=== PATIENT | female | born 1965 | race Caucasian/White ===

== ENCOUNTER → 2018-12-22 08:16 | Outpatient (POV) | payer BC, SELFPAY | PROVIDERS: Visit Provider Dermatology | DX: Z00.00 Encounter for general adult medical examination without abnormal findings (principal) ==

== ENCOUNTER → 2019-05-13 09:01 | Outpatient (CLI) | payer BC, SELFPAY ==
--- NOTE | 2019-05-13 09:10 | XR_ITS ---
XR wrist RT min 3V HISTORY pain following injury ITS.REASON: RT WRIST/HAND PAIN ORDERING PHYSICIAN: Shannon Melgar APRN PATIENT AGE: 53 years Comparison: None FINDINGS: No fracture or dislocation. No lytic or blastic change. There is normal mineralization.. The joint spaces are well-preserved. No significant degenerative/arthritic changes. No erosive changes evident.. There is mild bowing of the pronator quadratus fat pad anteriorly. This is of questionable clinical significance. If pain persists, consider follow-up exam in 7-10 days IMPRESSION: No acute fracture identified. Mild bowing of the pronator quadratus fat pad which may be seen with wrist trauma. Consider follow-up exam in 7-10 days if pain persists
--- NOTE | 2019-05-13 09:10 | XR_ITS ---
XR hand RT min 3V HISTORY: Post traumatic pain ITS.REASON: RT WRIST/HAND PAIN ORDERING PHYSICIAN: Shannon Melgar APRN PATIENT AGE: 53 years COMPARISON: None FINDINGS: No fracture or dislocation. No lytic or blastic change. There is normal mineralization.. The joint spaces are well-preserved. No significant degenerative/arthritic changes. No erosive changes evident.. IMPRESSION: Negative, no acute finding
== END ==
PROVIDERS: PCP Internal Medicine Adolescent Medicine; Visit Provider Nurse Practitioner Family
DX: M79.601 Pain in right arm (principal)
CPT/HCPCS: 73110; 73130

== ENCOUNTER → 2020-11-15 09:43 | Outpatient (CLI) | payer BC, SELFPAY ==
[2020-11-15 11:04] LABS: Adenovirus,PCR Not Detected (NotDetected); Bordetella Pertussis Not Detected (NotDetected); Chlamydophila Pneumoniae, PCR Not Detected (NotDetected); Coronavirus 19, PCR Not Detected (NotDetected); Coronavirus 229E Not Detected (NotDetected); Coronavirus NL63 Not Detected (NotDetected); Coronavirus OC43 Not Detected (NotDetected); Coronovirus HKU1,PCR Not Detected (NotDetected); Human Metapneumovirus Not Detected (NotDetected); Influenza A, PCR Not Detected (NotDetected); Influenza AH1, 2009 Not Detected (NotDetected); Influenza AH1, PCR Not Detected (NotDetected); Influenza AH3,PCR Not Detected (NotDetected); Influenza B, PCR Not Detected (NotDetected); Mycoplasma Pneumoniae, PCR Not Detected (NotDetected); Parainfluenza 1, PCR Not Detected (NotDetected); Parainfluenza 2, PCR Not Detected (NotDetected); Parainfluenza 3, PCR Not Detected (NotDetected); Parainfluenza 4, PCR Not Detected (NotDetected); Respiratory Syncytial Virus Not Detected (NotDetected); Rhinovirus/Enterovirus Not Detected (NotDetected)
== END ==
PROVIDERS: PCP Internal Medicine Adolescent Medicine; Visit Provider Internal Medicine Adolescent Medicine
DX: Z20.822 Contact with and (suspected) exposure to COVID-19 (principal)
CPT/HCPCS: 87581; 87633; 87798

== ENCOUNTER → 2021-06-14 10:05 | Outpatient (CLI) | payer BC, SELFPAY ==
--- NOTE | 2021-06-14 10:11 | XR_ITS ---
PROCEDURE: XR CHEST 2V CLINICAL HISTORY: NODULE OF CHEST WALL COMPARISON: No exams were available for comparison FINDINGS: The cardiomediastinal silhouette and pulmonary vascularity are within normal limits. There is a 2 x 0.8 cm nodule in the left lung zone laterally which may be partially calcified. The remaining lungs are clear. No acute bony abnormalities. IMPRESSION: Left upper lobe nodule may be partially calcified. CT may confirm. Otherwise negative. Dictated by: Brendan Feldman MD 06/14/2021 15:46 Brendan Feldman MD in [place] 06/14/2021 15:46
== END ==
PROVIDERS: PCP Internal Medicine Adolescent Medicine; Visit Provider Internal Medicine Adolescent Medicine
DX: R22.2 Localized swelling, mass and lump, trunk (principal)
CPT/HCPCS: 71046

== ENCOUNTER → 2022-03-26 13:52 | Outpatient (POV) | payer BC, SELFPAY | PROVIDERS: Visit Provider Dermatology | DX: Z00.00 Encounter for general adult medical examination without abnormal findings (principal) ==

== ENCOUNTER → 2022-05-07 08:16 | Outpatient (POV) | payer BC, SELFPAY | PROVIDERS: Visit Provider Dermatology | DX: Z00.00 Encounter for general adult medical examination without abnormal findings (principal) ==

== ENCOUNTER → 2022-06-10 09:54 | Outpatient (CLI) | payer BC, SELFPAY | PROVIDERS: PCP Nurse Practitioner Family; Visit Provider Nurse Practitioner Family | DX: G47.33 Obstructive sleep apnea (adult) (pediatric) (principal); R06.83 Snoring | CPT/HCPCS: G0399 ==

== ENCOUNTER → 2023-07-29 14:52 | Outpatient (POV) | payer BC, SELFPAY ==
--- OUTSIDE RECORDS SUMMARY | 2023-07-29 14:54 | XMS_ITS | Clinical Summary ---
Author Name Unknown Address [address] [place] [address] Phone Organization [facility] , [facility] Address [address] [place] [address] Phone Care Team Providers Care Credit Charge Authorizer Name Role Phone KIM POZO MD Primary Care Provider [phone] Julio CHERRY, Gideon Concepcion Unavailable [phone] Reason for Visit and Chief Complaint NEW PROBLEM/EST PT Problems Includes: Problems addressed during this encounter and other active Problems Current Visit Onset Date Resolved Date Provider Conditio n Status Joint Pain in the Left Knee 05/20/2023 Celio Duval MD Active Past Visits Onset Date Resolved Date Provider Condition Status Joint Pain in the Left Hip 03/04/2023 Ceilo pride MD Active Plan of Treatment Patient was seen by myself and Dr. Duval. Jitendra Osborn PA-C Patient will follow- up in 2 months for the right knee with repeat x-rays for the right total knee replacement we will switch from Mobic to diclofenac for her and follow-up with rheumatology sometime in June possibly she could have some psoriatic arthritis - Last Documented On 05/21/2023 2:34PM ; [facility], [facility] Pending Tests Order Diagnosis Results Due Ordering P [facility] - MRI MRI Lumbar Spine Other intervert ebral disc degeneration, lumbar region 03/18/23 Celio Duval MD Future Appointments Date Time Location Provi arian Follow Up 08/05/2023 8:30AM [facility] CANDI Duval MD Assessments Includes: Assessments from this encounter Findings Left knee pain/chondromalacia - Last Documented On 05/21/2023 2:34PM ; [facility], [facility] bilateral foot pain - Last Documented On 05/21/2023 2:34PM ; [facility], [facility] Medical Equipment - Implanted Devices Includes: Current Devices No Medical Equipment Recorded Medications Includes: Medications discussed during this encounter and other current Medications New / Renewed during this visit Celio Duval MD on 05/20/2023 Diclofenac Sodium 75 MG Oral Tablet, enteric coated Provider: Celio Duval MD 30 day supply: 60 tablet, 1 refills Diagnosis: twice a day take 1 tablet twice daily Pharmacy: [phone], [id number] - Current Medications (continue as prescribed) Meloxicam 15 MG Oral Tablet 05/07/2023 - 08/05/2023 Pr ovider: Celio Duval MD Diagnosis: 1 every bedtime Advil 200 MG Oral Capsule 12/31/2022 Provider: Diagnosis: traZODone HCl 50 MG Oral Tablet 12/31/2022 Provider: Diagnosis: Gabapentin 300 MG Oral Capsule 12/23/2022 Provider: Diagnosis: Losartan Potassium 50 MG Oral Tablet 08/17/2022 Prov ider: Diagnosis: clonazePAM 1 MG Oral Tablet 06/10/2022 Provider: Diagnosis: [place] Thyroid 60 MG Oral Tablet 03/22/2021 Provider : KELLIE LACEY MD Diagnosis: Past Medications on file Meloxicam 15 MG Oral Tablet 04/01/2023 - 05/01/2023 Pr ovider: Celio Duval MD Diagnosis: 1 every bedtime Neurontin 300 MG Oral Capsule 02/26/2023 - 03/28/2023 Provider: Celio Duval MD Diagnosis: 1 every bedtime traMADol HCl 50 MG Oral Tablet 02/26/2023 - 03/28/2023 Provider: Celio Duval MD Diagnosis: 1 every bedtime Methocarbamol 750 MG Oral Tablet 01/31/2023 - 03/02/20 Provider: Celio Duval MD Diagnosis: 1 every bedtime Meloxicam 15 MG Oral Tablet 01/17/2023 - 02/16/2023 Pr ovider: Celio Duval MD Diagnosis: once a day traMADol HCl 50 MG Oral Tablet 01/17/2023 - 02/01/2023 Provider: Celio Duval MD Diagnosis: 1-2 p o q 6-8h for breakthrough post op pain oxyCODONE HCl 5 MG Oral Tablet 01/17/2023 - 01/22/2023 Provider: Celio Duval MD Diagnosis: 1-2 p o q 6-8h for post op pain Ondansetron HCl 4 MG Oral Tablet 01/17/2023 - 02/01/20 Provider: Celio Duval MD Diagnosis: 1-2 p o q 6-8h as needed for nausea Cefadroxil 500 MG Oral Capsule 01/17/2023 - 01/20/2023 Provider: Celio Duval MD Diagnosis: twice a day Colace 100 MG Oral Capsule 01/17/2023 - 02/16/2023 Pro vider: Celio Duval MD Diagnosis: 1-2 tabs daily as needed, AFTER SURGERY Aspirin Adult Low Strength 8 1 MG Oral Tablet Delayed Release 01/17/2023 - 03/03/2023 Provider: Celio Duval MD Diagnosis: twice a day Acetaminophen 500 MG Oral Tablet 01/17/2023 - 02/17/20 Provider: Celio Duval MD Diagnosis: 2 three times a day , AFTER SURGERY traMADol HCl 50 MG Oral Tablet 12/13/2022 - 01/12/2023 Provider: Celio Duval MD Diagnosis: 1 tab every 6 hrs prn pain Neurontin 300 MG Oral Capsule 12/12/2022 - 01/11/2023 Provider: Celio Duval MD Diagnosis: 1 every bedtime oxyCODONE HCl 5 MG Oral Tablet 11/27/2022 - 12/07/2022 Provider: Celio Duval MD Diagnosis: 1 every bedtime Meloxicam 15 MG Oral Tablet 11/22/2022 - 12/02/2022 Pr ovider: Celio Duval MD Diagnosis: 1 every bedtime traMADol HCl 50 MG Oral Tablet 09/26/2022 - 10/06/2022 Provider: Celio Duval MD Diagnosis: 1-2 po q 4-6h PRN for breakthrough post op pain Ondansetron HCl 4 MG Oral Tablet 09/26/2022 - 10/10/20 Provider: Celio Duval MD Diagnosis: 1-2 p o q 6-8h as needed for nausea oxyCODONE HCl 5 MG Oral Tablet 09/26/2022 - 09/30/2022 Provider: Celio Duval MD Diagnosis: 1 po q 4h 1 tablet by mouth every [address] op pain Aspirin Adult Low Strength 8 1 MG Oral Tablet Delayed Release 09/26/2022 - 11/10/2022 Provider: Celio Duval MD Diagnosis: twice a day Methocarbamol 750 MG Oral Tablet 04/30/2022 - 06/29/20 22 Provider: Jitendra Osborn PA-C Diagnosis: Take 1 tablet every 8 hrs prn pain Mobic 15 MG Oral Tablet 09/13/2021 - 11/12/2021 Provid er: Gideon Kim MD Diagnosis: once a day CeleBREX 200 MG Oral Capsule 08/09/2021 - 09/08/2021 P rovider: Gideon Kim MD Diagnosis: once a day HYDROcodone-Acetaminophen 5- 325 MG Oral Tablet 06/11/2021 - 07/11/2021 Provider: Gideon Kim MD Diagnosis: 1 po q 4h prn for pain Ibuprofen 800 MG Oral Tablet 06/11/2021 - 10/09/2021 P rovider: Diagnosis: Take 1 tablet every 8 hrs prn pain Medications Administered Includes: Administered Medications from this encounter No Administered Medications Recorded Results Includes: Results discussed during this encounter No Results Recorded For Specified Dates History of Present Illness Includes: History of Present Illness from this encounter EDEN FUNK is a 57 year old female. - Symptoms catching, popping, and grinding. - Allergy list reviewed - Problem list reviewed - Medication list reviewed - Sharp pain Symptoms - Stabbing - Pain is occasional (25% of the time) - Pain is throbbing - Pain is dull, aching - No previous treatment. Patient is here today with complaint of bilateral foot pain left knee pain she schedule see the awning assembler for both feet sometime the end of June. She says that both feet bother her She says feels like at times she is getting an ice pick treatment through her right big toes on both sides but all her toes hurt when she is trying to walk. Her knee has been bothering her on the left side she had a history of a previous right knee replacement. She says the diclofenac does not seem to help much anymore. She has gotten relief before with some diclofenac. She says her knee will grind difficulties going up and down steps Follow-up right total knee patient is doing well with her right total knee pain in the left knee more than she would like but is not interested in surgery on the left knee at this time Social History Description Last Updated Yes, current smoker. 03/18/2023 Procedures and Surgical History Includes: Procedures from this encounter Procedures Code Diagnosis Performing Provider Service Location Service Date X-RAY EXAM OF FOOT 3 VIEWS (RIGHT) 65634 Pain in right ankle and joints of right foot Celio Duval MD [facility] 05/20/2023 Medical History Includes: Medical History addressed during this encounter Description Last Updated History of Gallbladder 05/30/2020 Family History Includes: Family History addressed during this encounter Description Last Updated No significant family history 06/28/2021 Review of Systems Includes: Review of Systems from this encounter No Review of Systems Recorded Mental Status Includes: Mental Status from this encounter No Mental Status Recorded Functional Status Includes: Functional Status from this encounter No Functional Status Recorded Physical Exam Includes: Physical Exam from this encounter Allergies Includes: Active Allergies Substance Type Reaction Onset Date Resolved Date Statu s Penicillins Allergy 05/30/2020 Active Encounters Encounter Provider Location Date Check-In Time Check-Out Time Diagnosis NEW PROBLEM/EST PT Celio Duval MD [facility] 05/20/20 23 10:23AM 11:32AM Insurance Includes: Active Insurance Policies Plan Name Member ID Group # Subscriber Relationship Effect darius Dates 1 - [facility] [id number] BLESSING, ANDRÉS 10/13/2020 - Unknown Clinical Notes Includes: Clinical Notes from this encounter * Progress note Date Encounter Last Documented by 05/20/2023 NEW PROBLEM/EST PT Last document ed on 05/21/2023; 2:34 PM, Celio Duval MD; [facility] Active Problems & Conditions - Joint Pain in the Left Hip - Joint Pain in the Left Knee - Joint Pain in the Right Knee - Joint Pain, Localized in the Left Shoulder - Lower Back Pain - Neck Pain Subjective Have you ever tried physical therapy for this and how long and where? What injections have you tried for this pain? Last injection date? Have you had prior surgery on this area? What medications have you tried for this pain? Have you tried to lose weight? History of Present Illness Melissa FUNK is a 57 year old female. - Symptoms catching, popping, and grinding. - Allergy list reviewed - Problem list reviewed - Medication list reviewed - Sharp pain Symptoms - Stabbing - Pain is occasional (25% of the time) - Pain is throbbing - Pain is dull, aching - No previous treatment. Patient is here today with complaint of bilateral foot pain left knee pain she schedule see the awning assembler for both feet sometime the end of June. She says that both feet bother her She says feels like at times she is getting an ice pick treatment through her right big toes on both sides but all her toes hurt when she is trying to walk. Her knee has been bothering her on the left side she had a history of a previous right knee replacement. She says the diclofenac does not seem to help much anymore. She has gotten relief before with some diclofenac. She says her knee will grind difficulties going up and down steps Follow-up right total knee patient is doing well with her right total knee pain in the left knee more than she would like but is not interested in surgery on the left knee at this time Current Medication - Advil 200 MG Oral Capsule Capsule, conventional take as directed 0 days, 0 refills - [place] Thyroid 60 MG Oral Tablet 90 days, 0 refills - clonazePAM 1 MG Oral Tablet 30 days, 0 refills - Gabapentin 300 MG Oral Capsule Capsule, conventional take as directed 0 days, 0 refills - Losartan Potassium 50 MG Oral Tablet take as directed 30 days, 0 refills - Meloxicam 15 MG Oral Tablet 1 every bedtime, 30 days, 2 refills - traZODone HCl 50 MG Oral Tablet 0 days, 0 refills Past Medical/Surgical History Reported: Immunization History: No recent immunization for flu and not for pneumococcal pneumonia. Diagnoses: Thyroid Disease Procedural: - History of Gallbladder - Previous Fractures Surgical: - Hysterectomy Social History Yes, current smoker. Yes, current smoker. Current diet: No recent change in diet. No recent change in diet. Caffeine use: Caffeine use. Tobacco use: Tobacco non-user and smoker. Is a smoker. Smoking status: Current everyday smoker. Alcohol: Alcohol use. Drug Use: Not using drugs. Habits: Exercising regularly. Allergies - Penicillins Family History No significant family history Osteoporosis Physical Findings Both feet have no swelling no significant deformity left knee has no significant swelling range of motion 0-125 stable crepitus through the range of motion stable ligamentous exam Tests 2 views left knee shows no significant arthritis in the left knee bilateral foot x-ray showed no significant erosions or fractures May 20, 2023 Assessment Left knee pain/chondromalacia bilateral foot pain Plan StartCited - Other Diclofenac Sodium 75 MG tablet twice a day take 1 tablet twice daily, 30 days, 1 refills EndCited Patient was seen by myself and Dr. Duval. Jitendra Osborn PA-C Patient will follow- up in 2 months for the right knee with repeat x-rays for the right total knee replacement we will switch from Mobic to diclofenac for her and follow-up with rheumatology sometime in June possibly she could have some psoriatic arthritis Notes This dictation was done with voice recognition software and may contain errors and omissions. Care Team - KIM POZO MD - TRANSPORTATION [employer]
--- OUTSIDE RECORDS SUMMARY | 2023-07-29 14:54 | XMS_ITS ---
Author Name Unknown Address [address] [place] [address] Phone Organization [facility] Address [address] [place] [address] Phone Care Team Providers Care Assistant Manager Of Operations Name Role Phone KIM POZO MD Primary Care Provider [phone] Julio CHERRY, Gideon Concepcion Unavailable [phone] Reason for Referral Date Encounter Description Provider Reason for Referral 06/12/22 [facility] Jitendra pinedo PA-C Referral To Physician 05/29/22 [facility] Jitendra pinedo PA-C Referral To Physician 05/22/22 [facility] Jitendra pinedo PA-C Referral To Physician 04/30/22 NEW PROBLEM/EST PT Jitendra Osborn PA-C Ref erral To Physician - for elevated bp; Referral To Physician 04/24/22 Follow Up Jitendra Cadet PA-C Refer ral To Physician - for elevated bp 04/10/22 Follow Up Jitendra Cadet PA-C Refer ral To Physician - for elevated bp 01/29/22 Follow Up Celio Duval MD Referral To Physician - for elevated bp 09/13/21 Follow Up Gideon Kim MD Referral To Physician - for elevated bp 08/09/21 Follow Up Gideon Kim MD Referral To Physician - for elevated bp 06/28/21 Follow Up Gideon Kim MD Referral To Physician - for elevated blood pressure 06/11/21 NEW PROBLEM/EST PT Gideon Kim MD Refer ral To Physician - see pcp for bp 07/04/20 Follow Up Celio Duval MD Referral To Physician - see pcp for bp Problems Includes: Active, inactive, and resolved Problems All Visits Onset Date Resolved Date Provider Condition S tatus Joint Pain in the Left Knee 05/20/2023 Celio Duval MD Active Plan of Treatment Pending Tests Order Diagnosis Results Due Ordering P rovider Radiology - CT Scan Knee 12/11/22 Satinder Cadet PA-C Referrals To Diagnosis Consult with Bead Builder Low back pain, unspecified Future Appointments Date Time Location Provi arian Follow Up 08/05/2023 8:30AM [facility] [place] Duval MD Instructions to patient Intervention and counseling on cessation of tobacco use Last Documented On 3 10:51AM ; [facility] Intervention and counseling on cessation of tobacco use Last Documented On 3 1:31PM ; [facility] Intervention and counseling on cessation of tobacco use Last Documented On 3 8:45AM ; [facility] Lose weight Last Documented On 3 8:45AM ; [facility] Intervention and counseling on cessation of tobacco use Last Documented On 3 9:41AM ; [facility] Lose weight Last Documented On 3 9:41AM ; [facility] Intervention and counseling on cessation of tobacco use Last Documented On 3 2:47PM ; [facility] Lose weight Last Documented On 3 2:47PM ; [facility] Intervention and counseling on cessation of tobacco use Last Documented On 3 2:07PM ; [facility] Lose weight Last Documented On 3 1:53PM ; [facility] Lose weight Last Documented On 2 10:52AM ; [facility] Intervention and counseling on cessation of tobacco use Last Documented On 2 1:50PM ; [facility] Lose weight Last Documented On 2 1:46PM ; [facility] Lose weight Last Documented On 2 8:31AM ; [facility] Intervention and counseling on cessation of tobacco use Last Documented On 2 9:14AM ; [facility] Lose weight Last Documented On 2 9:14AM ; [facility] Intervention and counseling on cessation of tobacco use Last Documented On 2 8:42AM ; [facility] Lose weight Last Documented On 2 8:42AM ; [facility] Intervention and counseling on cessation of tobacco use Last Documented On 2 8:37AM ; [facility] Lose weight Last Documented On 2 8:37AM ; [facility] Intervention and counseling on cessation of tobacco use Last Documented On 2 2:30PM ; [facility] Lose weight Last Documented On 2 2:26PM ; [facility] Intervention and counseling on cessation of tobacco use Last Documented On 2 10:00AM ; [facility] Lose weight Last Documented On 2 10:00AM ; [facility] Intervention and counseling on cessation of tobacco use Last Documented On 2 10:20AM ; [facility] Lose weight Last Documented On 2 10:05AM ; [facility] Lose weight Last Documented On 2 10:56AM ; [facility] Lose weight Last Documented On 1 8:28AM ; [facility] Lose weight Last Documented On 1 8:17AM ; [facility] Lose weight Last Documented On 1 8:17AM ; [facility] Intervention and counseling on cessation of tobacco use Last Documented On 1 9:56AM ; [facility] Instructions for patient see pcp for bp Last Documented On 1 10:10AM ; [facility] Intervention and counseling on cessation of tobacco use Last Documented On 1 10:10AM ; [facility] Instructions for patient see pcp for bp Last Documented On 0 8:50AM ; [facility] Intervention and counseling on cessation of tobacco use Last Documented On 0 8:50AM ; [facility] Instructions for patient see pcp for bp Last Documented On 0 10:55AM ; [facility] Intervention and counseling on cessation of tobacco use Last Documented On 0 10:55AM ; [facility] Instructions for patient see pcp for bp Last Documented On 0 10:23AM ; [facility] Intervention and counseling on cessation of tobacco use Last Documented On 0 10:02AM ; [facility] Education and Decision Aids were provided during visit for: Health seminar on smoking ce ssation Last Documented On 3 8:45AM ; [facility] Health seminar on smoking ce ssation Last Documented On 3 9:41AM ; [facility] Health seminar on smoking ce ssation Last Documented On 3 2:47PM ; [facility] Health seminar on smoking ce ssation Last Documented On 3 1:53PM ; [facility] Health seminar on smoking ce ssation Last Documented On 2 10:52AM ; [facility] Health seminar on smoking ce ssation Last Documented On 2 1:46PM ; [facility] Health seminar on smoking ce ssation Last Documented On 2 8:31AM ; [facility] Health seminar on smoking ce ssation Last Documented On 2 9:14AM ; [facility] Health seminar on smoking ce ssation Last Documented On 2 8:42AM ; [facility] Health seminar on smoking ce ssation Last Documented On 2 8:37AM ; [facility] Health seminar on smoking ce ssation Last Documented On 2 2:26PM ; [facility] Health seminar on smoking ce ssation Last Documented On 2 10:00AM ; [facility] Health seminar on smoking ce ssation Last Documented On 2 10:05AM ; [facility] Health seminar on smoking ce ssation Last Documented On 2 10:56AM ; [facility] Health seminar on smoking ce ssation Last Documented On 1 8:28AM ; [facility] Health seminar on smoking ce ssation Last Documented On 1 8:17AM ; [facility] Health seminar on smoking ce ssation Last Documented On 1 8:17AM ; [facility] Health seminar on smoking ce ssation Last Documented On 1 9:56AM ; [facility] Health seminar on smoking ce ssation Last Documented On 1 10:10AM ; [facility] Health seminar on smoking ce ssation Last Documented On 0 8:50AM ; [facility] Health seminar on smoking ce ssation Last Documented On 0 10:55AM ; [facility] Health seminar on smoking ce ssation Last Documented On 0 10:23AM ; [facility] Assessments Includes: Assessments for all patient encounters No Assessments Recorded Instructions Includes: Instructions for all patient encounters Instructions to patient Intervention and counseling on cessation of tobacco use Last Documented On 3 10:51AM ; [facility] Intervention and counseling on cessation of tobacco use Last Documented On 3 1:31PM ; [facility] Intervention and counseling on cessation of tobacco use Last Documented On 3 8:45AM ; [facility] Lose weight Last Documented On 3 8:45AM ; [facility] Intervention and counseling on cessation of tobacco use Last Documented On 3 9:41AM ; [facility] Lose weight Last Documented On 3 9:41AM ; [facility] Intervention and counseling on cessation of tobacco use Last Documented On 3 2:47PM ; [facility] Lose weight Last Documented On 3 2:47PM ; [facility] Intervention and counseling on cessation of tobacco use Last Documented On 3 2:07PM ; [facility] Lose weight Last Documented On 3 1:53PM ; [facility] Lose weight Last Documented On 2 10:52AM ; [facility] Intervention and counseling on cessation of tobacco use Last Documented On 2 1:50PM ; [facility] Lose weight Last Documented On 2 1:46PM ; [facility] Lose weight Last Documented On 2 8:31AM ; [facility] Intervention and counseling on cessation of tobacco use Last Documented On 2 9:14AM ; [facility] Lose weight Last Documented On 2 9:14AM ; [facility] Intervention and counseling on cessation of tobacco use Last Documented On 2 8:42AM ; [facility] Lose weight Last Documented On 2 8:42AM ; [facility] Intervention and counseling on cessation of tobacco use Last Documented On 2 8:37AM ; [facility] Lose weight Last Documented On 2 8:37AM ; [facility] Intervention and counseling on cessation of tobacco use Last Documented On 2 2:30PM ; [facility] Lose weight Last Documented On 2 2:26PM ; [facility] Intervention and counseling on cessation of tobacco use Last Documented On 2 10:00AM ; [facility] Lose weight Last Documented On 2 10:00AM ; [facility] Intervention and counseling on cessation of tobacco use Last Documented On 2 10:20AM ; [facility] Lose weight Last Documented On 2 10:05AM ; [facility] Lose weight Last Documented On 2 10:56AM ; [facility] Lose weight Last Documented On 1 8:28AM ; [facility] Lose weight Last Documented On 1 8:17AM ; [facility] Lose weight Last Documented On 1 8:17AM ; [facility] Intervention and counseling on cessation of tobacco use Last Documented On 1 9:56AM ; [facility] Instructions for patient see pcp for bp Last Documented On 1 10:10AM ; [facility] Intervention and counseling on cessation of tobacco use Last Documented On 1 10:10AM ; [facility] Instructions for patient see pcp for bp Last Documented On 0 8:50AM ; [facility] Intervention and counseling on cessation of tobacco use Last Documented On 0 8:50AM ; [facility] Instructions for patient see pcp for bp Last Documented On 0 10:55AM ; [facility] Intervention and counseling on cessation of tobacco use Last Documented On 0 10:55AM ; [facility] Instructions for patient see pcp for bp Last Documented On 0 10:23AM ; [facility] Intervention and counseling on cessation of tobacco use Last Documented On 0 10:02AM ; [facility] Education and Decision Aids were provided during visit for: Health seminar on smoking ce ssation Last Documented On 3 8:45AM ; [facility] Health seminar on smoking ce ssation Last Documented On 3 9:41AM ; [facility] Health seminar on smoking ce ssation Last Documented On 3 2:47PM ; [facility] Health seminar on smoking ce ssation Last Documented On 3 1:53PM ; [facility] Health seminar on smoking ce ssation Last Documented On 2 10:52AM ; [facility] Health seminar on smoking ce ssation Last Documented On 2 1:46PM ; [facility] Health seminar on smoking ce ssation Last Documented On 2 8:31AM ; [facility] Health seminar on smoking ce ssation Last Documented On 2 9:14AM ; [facility] Health seminar on smoking ce ssation Last Documented On 2 8:42AM ; [facility] Health seminar on smoking ce ssation Last Documented On 2 8:37AM ; [facility] Health seminar on smoking ce ssation Last Documented On 2 2:26PM ; [facility] Health seminar on smoking ce ssation Last Documented On 2 10:00AM ; [facility] Health seminar on smoking ce ssation Last Documented On 2 10:05AM ; [facility] Health seminar on smoking ce ssation Last Documented On 2 10:56AM ; [facility] Health seminar on smoking ce ssation Last Documented On 1 8:28AM ; [facility] Health seminar on smoking ce ssation Last Documented On 1 8:17AM ; [facility] Health seminar on smoking ce ssation Last Documented On 1 8:17AM ; [facility] Health seminar on smoking ce ssation Last Documented On 1 9:56AM ; [facility] Health seminar on smoking ce ssation Last Documented On 1 10:10AM ; [facility] Health seminar on smoking ce ssation Last Documented On 0 8:50AM ; [facility] Health seminar on smoking ce ssation Last Documented On 0 10:55AM ; [facility] Health seminar on smoking ce ssation Last Documented On 0 10:23AM ; [facility] Medical Equipment - Implanted Devices Includes: Current and historical Devices No Medical Equipment Recorded Medications Includes: Current and historical Medications Current Medications (continue as prescribed) Meloxicam 15 [...] 1 MG Oral Tablet 06/10/2022 Provider: Diagnosis: [place] Thyroid 60 MG Oral Tablet 03/22/2021 Provider : KELLIE LACEY MD Diagnosis: Past Medications on file Diclofenac Sodium 75 MG Oral Tablet, enteric coated 05/20/2023 - 07/19/2023 Provider: Celio Duval MD Diagnosis: twice a day take 1 tablet twice daily Meloxicam 15 MG Oral Tablet 04/01/2023 - [...] three times a day , AFTER SURGERY traZODone HCl 50 MG Oral Tablet 12/31/2022 - Provider: Diagnosis: traMADol HCl 50 MG Oral Tablet 12/13/2022 [...] Celio Duval MD Diagnosis: twice a day amLODIPine Besylate 5 MG Oral Tablet 06/10/2022 - 04/2022 Provider: Diagnosis: Methocarbamol 750 MG Oral Tablet 04/30/2022 - 06/29/20 Provider: Jitendra Osborn PA-C Diagnosis: Take 1 [...] 1 po q 4h prn for pain HYDROcodone-Acetaminophen 7.5-300 MG Oral Tablet 06/11/2021 - 06/28/2021 Provider: Diagnosis: Ibuprofen 800 MG Oral Tablet 06/11/2021 - 10/09/2021 P rovider: Diagnosis: Take 1 tablet every 8 hrs prn pain clonazePAM 1 MG Oral Tablet 05/07/2021 - 06/12/2022 Pr ovider: KIM POZO MD Diagnosis: KlonoPIN 0.5 MG Oral Tablet 05/30/2020 - 06/11/2021 Pr ovider: Diagnosis: Medications Administered Includes: Administered Medications in patient's chart No Administered Medications Recorded Vital Signs Includes: Vital Signs from 07/29/2022 through 07/29/2023 Vital Name 04/01/2023 11:04A 03/04/2023 08:52A 12/31/2022 10:17A 12/12/2022 03:31P 11/27/2022 02:06P Height (in) 70 70 70 70 70 Weight (lb) 245 245 245.6 240 240 Body Mass Index 35.2 35.2 35.2 34.4 34.4 Body Surface Area 2.3 2.3 2.3 2.3 2.3 Blood Pressure Sitting (mmHg) 102/74 Pulse Rate-Sitting (bpm) 89 Oxygen Saturation (%) .97 Note: mg mg baf ba ba Last Documented On: 04/01/2023 11:04AM ; [facility] 03/04/2023 8:52AM ; [facility] 12/31/2022 10:23AM ; [facility] 12/12/2022 3:31PM ; [facility] 11/27/2022 2:07PM ; [facility] Vital Name 10/11/2022 11:04A 09/18/2022 09:01A 09/11 01:49P Height (in) 70 70 70 Weight (lb) 240 242.6 240 Body Mass Index 34.4 34.8 34.4 Body Surface Area 2.3 2.3 2.3 Blood Pressure Sitting (mmHg) 128/77 113/79 118/71 Pulse Rate-Sitting (bpm) 103 83 135 Oxygen Saturation (%) 98 Note: ba TDT ba Last Documented On: 10/11/2022 11:05AM ; [facility] 09/18/2022 9:04AM ; [facility] 09/11/2022 1:49PM ; [facility] Results Includes: Results from 07/29/2022 through 07/29/2023 No Results Recorded For Specified Dates History of Present Illness History of Present Illness not supported for this document type No History of Present Illness Recorded Social History Description Last Updated Yes, current smoker. 03/18/2023 Procedures and Surgical History Includes: Procedures from 07/29/2022 through 07/29/2023 Procedures Code Diagnosis Performing Provider Service Location Service Date X-RAY EXAM OF KNEE 1 OR 2 VIEWS (RIGHT) 83907 Bilateral primary osteoarthritis of knee Celio Duval MD [facility] 05/20/2023 Medical History Includes: Medical History in patient's chart Description Last Updated History of Gallbladder 05/30/2020 Family History Includes: Family History in patient's chart Description Last Updated No significant family history 06/28/2021 Review of Systems Review of Systems not supported for this document type No Review of Systems Recorded Mental Status No Mental Status Recorded Functional Status No Functional Status Recorded Physical Exam Physical Exam not supported for this document type No Physical Exam Recorded Allergies Includes: Active, inactive, and resolved Allergies Substance Type Reaction Onset Date Resolved Date Statu s Penicillins Allergy 05/30/2020 Active Encounters Includes: Encounters from 07/29/2022 through 07/29/2023 Encounter Provider Location Date Check-In Time Check-Out Time Diagnosis NEW PROBLEM/EST PT Celio Duval MD [facility] 023 10:23AM 11:32AM [Patient Encounter] Celio Duval MD 023 04/01/2023 11:10AM 04/01/2023 11:59PM Follow Up Celio Duval MD [facility] 023 10:50AM 11:59AM Follow Up Jitendra Osborn PA-C [facility] 023 8:05AM 8:19AM MRI [facility] 023 7:53AM 8:56AM Follow Up Celio Duval MD [facility] 023 8:42AM 9:24AM [Patient Encounter] Celio Duval MD 023 02/04/2023 2:29PM 02/04/2023 11:59PM Post Op Celio Duval MD [facility] 023 9:28AM 10:16AM [Patient Encounter] Celio Duval MD 023 01/17/2023 9:46AM 12/31/2022 11:59PM [Patient Encounter] Celio Duval MD 023 12/12/2022 11:21AM 12/12/2022 11:59PM [facility] Celio Duval MD Surgery 023 01/17/2023 8:25AM 12/31/2022 11:59PM Pre Admission Testing Ann ADEN [facility] 023 9:47AM 10:30AM Follow Up Celio Duval MD [facility] 023 2:34PM 4:10PM Follow Up Jitendra Cadet PA-C [facility] 023 1:41PM 3:20PM [Patient Encounter] Celio Duval MD 023 10/11/2022 2:40PM 10/11/2022 11:59PM Post Op Jael Rodriguez PA-C [facility] 022 10:47AM 11:24AM [facility] Celio Duval MD Surgery 022 09/30/2022 10:32AM 09/18/2022 11:59PM [Patient Encounter] Celio Duval MD 022 09/11/2022 12:56PM 09/11/2022 11:59PM Pre Admission Testing Ann ADEN [facility] 022 8:53AM 9:07AM Follow Up Jitendra Cadet PA-C [facility] 022 1:36PM 2:20PM Insurance Includes: Active Insurance Policies Plan Name Member ID Group # Subscriber Relationship Effect darius Dates 1 - [facility] [id number] BLESSING, ANDRÉS 10/13/2020 - Unknown Clinical Notes Includes: Signed Clinical Notes starting from 09/26/2022 * Progress note Date Encounter Last Documented by 05/20/2023 NEW PROBLEM/EST PT Last document ed on 05/21/2023; 2:34 PM, Celio Duval MD; [facility] Active Problems & Conditions - [...] left knee pain she schedule see the clinical nursing instructor for both feet sometime the end of [...] as directed 0 days, 0 refills - [place] Thyroid 60 MG Oral Tablet 90 days, [...] Care Team - KIM POZO MD - [facility] [place] [facility] * Progress note Date Encounter Last Documented by 04/01/2023 Follow Up Last documented on 04/01/2023; 1:06 PM, Celio Duval MD; [facility] Active Problems & Conditions - Joint Pain in the Left Hip - Joint Pain in the Right Knee - Joint Pain, Localized in the Left Shoulder - Lower Back Pain - Neck Pain Chief Complaint The Chief Complaint is: RT Knee pain. Referred Here Referred by self. History of Present Illness Melissa FUNK is a 57 year old female. - Allergy list reviewed - Problem list reviewed - Medication list reviewed Follow-up for foot pain bilateral with radicular symptoms and lumbar pain status post MRI lumbar spine Current Medication - Advil 200 MG Oral Capsule take as directed 0 days, 0 refills - [place] Thyroid 60 MG Oral Tablet 90 days, 0 refills - clonazePAM 1 MG Oral Tablet 30 days, 0 refills - Gabapentin 300 MG Oral Capsule take as directed 0 days, 0 refills - Losartan Potassium 50 MG Oral Tablet take as directed 30 days, 0 refills - traZODone HCl 50 MG Oral [...] Family History No significant family history Osteoporosis Review Of Systems Systemic: Not feeling tired, no recent weight loss, and no recent weight gain. Head: No headache and no sinus pain. Eyes: No vision problems, no Cataracts, no Glasses/Contacts, and no Glaucoma. Otolaryngeal: No hearing loss and no tinnitus. Cardiovascular: No chest pain or discomfort, no palpitations, no Hypertension, and no High Cholesterol. Pulmonary: No daytime asthma symptoms and no chronic cough. No wheezing. Gastrointestinal: No heartburn and no abdominal pain. No Indigestion, no Acid Reflux, no Peptic Ulcer, no GI Stomach Bleed, and no Ulcers. Endocrine: No hot flashes, no muscle weakness, and no Diabetes. Hypothyroid. No Hyperthyroid. Hematologic: No easy bleeding, no tendency for easy bruising, and no Anemia. Musculoskeletal: No Arthritis. Lower back pain. No soft tissue swelling. Pain localized to one or more joints. Neurological: No dizziness, no convulsions, and no numbness. Psychological: Anxiety. No emotional lability, no depression, and no insomnia. Not crying for no reason. Skin: No dry skin. No Ulcers, no Scars, and no rash. Allergic and Immunologic: Complaint of seasonal allergic reaction. Reviewed 04/01/2023 Physical Findings - Vitals taken 04/01/2023 11:04 am mg Height 70 in 48 - 78 Weight 245 lbs 98 - 183 Body Mass Index 35.2 kg/m2 Body Surface Area 2.3 m2 Right knee looks good 0-1 20 with good stability straight leg raise is negative for radicular signs she does have increased hyperemia in both feet and subjectively says very stiff and painful in the morning with her feet better as she moves around Tests MR MRI shows multilevel disc bulge mild to moderate with mild foraminal stenosis otherwise unremarkable Assessment Right total knee replacement January 20, 2023 Previous Tests Imaging: X-Ray: An X-ray was performed. Therapy - Intervention and counseling on cessation of tobacco use. Plan StartCited - Low back pain, unspecified Referral/Bead Builder: Consult with Bead Builder EndCited StartCited - Other Meloxicam 15 MG tablet 1 every bedtime, 30 days, 0 refills EndCited Patient will continue current exercise program for her knee she needs to see rheumatology for further work-up as foot and pain and stiffness can be associated with inflammatory arthritis and she needs good screening laboratory battery as well as physical exam by rheumatology to rule out some sort of systemic inflammatory problem I do not think her foot pain is coming from spinal stenosis as her disc disease is mild we will see her back in 3 months with regard to her knee on the right which is doing well Notes This dictation was done with voice recognition software and may contain errors and omissions. Practice Management Use of tobacco assessment performed; Body mass index not documented contraindicated. Care Team - KIM POZO MD - [facility] [place] [facility] [place] [facility] * Progress note Date Encounter Last Documented by 03/18/2023 Follow Up Last documented on 03/18/2023; 1:55 PM, Jitendra Osborn PA-C; [facility], [facility] Active Problems & Conditions - Joint Pain in the Left Hip - Joint Pain in the Right Knee - Joint Pain, Localized in the Left Shoulder - Lower Back Pain - Neck Pain Chief Complaint The Chief Complaint is: RT Knee pain. Referred Here Referred by self. History of Present Illness Melissa FUNK is a 57 year old female. - Allergy list reviewed - Problem list reviewed - Medication list reviewed Patient had total knee January 20, [address] Duval she noticed yesterday she had a little area in the center of the incision that was opened a little bit and was coming out a little bit of white pus looking material. She says that looks better today she has little bit of swelling with the knee she says little bit of warmth but no erythema. It is now closed though. Current Medication - Advil 200 MG Oral Capsule take as directed 0 days, 0 refills - [place] Thyroid 60 MG Oral Tablet 90 days, 0 refills - clonazePAM 1 MG Oral Tablet 30 days, 0 refills - Gabapentin 300 MG Oral Capsule take as directed 0 days, 0 refills - Losartan Potassium 50 MG Oral Tablet take as directed 30 days, 0 refills - Neurontin 300 MG Oral Capsule 1 every bedtime, 30 days, 0 refills - traMADol HCl 50 MG Oral Tablet 1 every bedtime, 30 days, 0 refills - traZODone HCl 50 MG Oral Tablet 0 days, 0 refills Past Medical/Surgical History Reported: Immunization History: No recent immunization for flu and not for pneumococcal pneumonia. Diagnoses: Thyroid Disease Procedural: - History of Gallbladder - Previous Fractures Surgical: - Hysterectomy Social History Yes, current smoker. Current diet: No recent change in diet. Caffeine use: Caffeine use. Tobacco use: Tobacco use. Alcohol: Alcohol use. Drug Use: Not using drugs. Habits: Exercising regularly. Allergies - Penicillins Family History Osteoporosis Review Of Systems Systemic: Not feeling tired, no recent weight loss, and no recent weight gain. Head: No headache and no sinus pain. Eyes: No vision problems, no Cataracts, no Glasses/Contacts, and no Glaucoma. Otolaryngeal: No hearing loss and no tinnitus. Cardiovascular: No chest pain or discomfort, no palpitations, no Hypertension, and no High Cholesterol. Pulmonary: No daytime asthma symptoms and no chronic cough. No wheezing. Gastrointestinal: No heartburn and no abdominal pain. No Indigestion, no Acid Reflux, no Peptic Ulcer, no GI Stomach Bleed, and no Ulcers. Endocrine: No hot flashes, no muscle weakness, and no Diabetes. Hypothyroid. No Hyperthyroid. Hematologic: No easy bleeding, no tendency for easy bruising, and no Anemia. Musculoskeletal: No Arthritis. Lower back pain. No soft tissue swelling. Pain localized to one or more joints. Neurological: No dizziness, no convulsions, and no numbness. Psychological: Anxiety. No emotional lability, no depression, and no insomnia. Not crying for no reason. Skin: No dry skin. No Ulcers, no Scars, and no rash. Allergic and Immunologic: Complaint of seasonal allergic reaction. Reviewed 03/18/2023 Physical Findings The incision looks clean dry intact there is no erythema there is no opening of the incision at this point time it is nontender to palpation she has full motion with the right knee Assessment Right total knee replacement January 20, 2023 Previous Tests Imaging: X-Ray: An X-ray was performed. Therapy - Intervention and counseling on cessation of tobacco use. Plan Patient was seen by myself Jitendra Osborn PA-C. Patient will follow up at her next scheduled appointment on April [address] Duval looks fine at this point time she may have had a little stitch in this area that caused her to have some irritation if that starts to look worse again then she is to call let us know we will look at this again. Reviewed signs and symptoms of infection with her if she is to have this she is to call and let us look at this Notes This dictation was done with voice recognition software and may contain errors and omissions. Practice Management Use of tobacco assessment performed; Body mass index not documented contraindicated. Care Team - KIM POZO MD - [facility] [place] [facility] [place] [facility] * Progress note Date Encounter Last Documented by 03/04/2023 Follow Up Last documented on 03/04/2023; 9:26 AM, Celio Duval MD; [facility] Active Problems & Conditions - Joint Pain in the Left Hip - Joint Pain in the Right Knee - Joint Pain, Localized in the Left Shoulder - Lower Back Pain - Neck Pain Chief Complaint The Chief Complaint is: RT Knee pain. Referred Here Referred by self. History of Present Illness Caro Funk is a 57 year old female. - Allergy list reviewed - Problem list reviewed - Medication list reviewed Right total knee doing well good motion left hip and leg pain has been getting worse she had previous history of degenerative disc disease lumbar spine previous MRI scan in 2002 with which time she saw spine surgeon who recommended conservative treatment symptoms got worse recently with left-sided radicular pain into the hip from the low back on the left side all the way down to the foot also burning in the right foot which gets better with rest worse with prolonged standing walking pain on the left goes down to the dorsum of the foot also the heel and L5-S1 distribution and is sharp in nature and times right knee otherwise doing Current Medication - Advil 200 MG Oral Capsule take as directed 0 days, 0 refills - [place] Thyroid 60 MG Oral Tablet 90 days, 0 refills - clonazePAM 1 MG Oral Tablet 30 days, 0 refills - Gabapentin 300 MG Oral Capsule take as directed 0 days, 0 refills - Losartan Potassium 50 MG Oral Tablet take as directed 30 days, 0 refills - Neurontin 300 MG Oral Capsule 1 every bedtime, 30 days, 0 refills - traMADol HCl 50 MG Oral Tablet 1 every bedtime, 30 days, 0 refills - traZODone HCl 50 MG Oral [...] Family History No significant family history Osteoporosis Review Of Systems Systemic: Not feeling tired, no recent weight loss, and no recent weight gain. Head: No headache and no sinus pain. Eyes: No vision problems, no Cataracts, no Glasses/Contacts, and no Glaucoma. Otolaryngeal: No hearing loss and no tinnitus. Cardiovascular: No chest pain or discomfort, no palpitations, no Hypertension, and no High Cholesterol. Pulmonary: No daytime asthma symptoms and no chronic cough. No wheezing. Gastrointestinal: No heartburn and no abdominal pain. No Indigestion, no Acid Reflux, no Peptic Ulcer, no GI Stomach Bleed, and no Ulcers. Endocrine: No hot flashes, no muscle weakness, and no Diabetes. Hypothyroid. No Hyperthyroid. Hematologic: No easy bleeding, no tendency for easy bruising, and no Anemia. Musculoskeletal: No Arthritis. Lower back pain. No soft tissue swelling. Pain localized to one or more joints. Neurological: No dizziness, no convulsions, and no numbness. Psychological: Anxiety. No emotional lability, no depression, and no insomnia. Not crying for no reason. Skin: No dry skin. No Ulcers, no Scars, and no rash. Allergic and Immunologic: Complaint of seasonal allergic reaction. Reviewed 03/04/2023 Physical Findings - Vitals taken 03/04/2023 08:52 am mg Height 70 in 48 - 78 Weight 245 lbs 98 - 183 Body Mass Index 35.2 kg/m2 Body Surface Area 2.3 m2 Standard Measurements: - Patient was overweight. Left side positive radicular symptoms with straight leg raise L5 and S1 no myelopathic signs right knee 0-1 20 with well-healed incision Tests Lumbar x-rays in the last year show degenerative disc disease L5-S1 and L4-5 with foraminal stenosis right knee shows good alignment of prosthesis no problems taken today X-ray of the pelvis shows mild degenerative changes of both hips otherwise unremarked Assessment Right total knee replacement January 20, 2023 Lumbar degenerative disc disease with L5-S1 radiculopathy on the left L4-5 and L5-S1 right total knee doing well bilateral foot pain possible neuropathy possibly connected to spinal pathology left hip pain related to spinal radicular pain mild degenerative disease Previous Tests Imaging: X-Ray: An X-ray was performed. Therapy - Intervention and counseling on cessation of tobacco use. Counseling/Education - Lose weight - Health seminar on smoking cessation Plan StartCited - Other intervertebral disc degeneration, lumbar region Radiology/MRI: MRI Lumbar Spine EndCited Recommend MRI scan lumbar spine to further evaluate spinal pathology related to left hip and left leg pain with L5-S1 distribution with no improvement with conservative treatment as this is the next appropriate step we will see her back after that to discuss treatment options Notes This dictation was done with voice recognition software and may contain errors and omissions. Practice Management Use of tobacco assessment performed. Care Team - KIM POZO MD - [facility] [place] [facility] [place] [facility] * Progress note Date Encounter Last Documented by 02/04/2023 Post Op Last documented on 02/04/2023; 4:26 PM, Celio Duval MD; [facility], [facility] Active Problems & Conditions - Joint Pain in the Right Knee - Joint Pain, Localized in the Left Shoulder - Lower Back Pain - Neck Pain Chief Complaint The Chief Complaint is: RT Knee pain. Referred Here Referred by self. History of Present Illness Caro Funk is a 57 year old female. - Allergy list reviewed - Problem list reviewed - Medication list reviewed Follow-up right total knee replacement January 20, 2023. She is starting outpatient this week. She just finished her home PT. No significant pain with the knee Current Medication - Acetaminophen 500 MG Oral Tablet 2 three times a day , AFTER SURGERY, 10 days, 2 refills - Advil 200 MG Oral Capsule take as directed 0 days, 0 refills - [place] Thyroid 60 MG Oral Tablet 90 days, 0 refills - Aspirin Adult Low Strength 81 MG Oral Tablet Delayed Release twice a day, 45 days, 0 refills - clonazePAM 1 MG Oral Tablet 30 days, 0 refills - Colace 100 MG Oral Capsule 1-2 tabs daily as needed, AFTER SURGERY, 30 days, 0 refills - Gabapentin 300 MG Oral Capsule take as directed 0 days, 0 refills - Losartan Potassium 50 MG Oral Tablet take as directed 30 days, 0 refills - Meloxicam 15 MG Oral Tablet once a day, 30 days, 0 refills - Methocarbamol 750 MG Oral Tablet 1 every bedtime, 30 days, 0 refills - traZODone HCl 50 MG Oral [...] Family History No significant family history Osteoporosis Review Of Systems Systemic: Not feeling tired, no recent weight loss, and no recent weight gain. Head: No headache and no sinus pain. Eyes: No vision problems, no Cataracts, no Glasses/Contacts, and no Glaucoma. Otolaryngeal: No hearing loss and no tinnitus. Cardiovascular: No chest pain or discomfort, no palpitations, no Hypertension, and no High Cholesterol. Pulmonary: No daytime asthma symptoms and no chronic cough. No wheezing. Gastrointestinal: No heartburn and no abdominal pain. No Indigestion, no Acid Reflux, no Peptic Ulcer, no GI Stomach Bleed, and no Ulcers. Endocrine: No hot flashes, no muscle weakness, and no Diabetes. Hypothyroid. No Hyperthyroid. Hematologic: No easy bleeding, no tendency for easy bruising, and no Anemia. Musculoskeletal: No Arthritis. Lower back pain. No soft tissue swelling. Pain localized to one or more joints. Neurological: No dizziness, no convulsions, and no numbness. Psychological: Anxiety. No emotional lability, no depression, and no insomnia. Not crying for no reason. Skin: No dry skin. No Ulcers, no Scars, and no rash. Allergic and Immunologic: Complaint of seasonal allergic reaction. Reviewed 02/04/2023 Physical Findings Standard Measurements: - Patient was overweight. Her incisions are clean dry intact no evidence of any infection range of motion 0-90 walks without the use of any assistive device Tests 2 views of the right knee February 04, 2023 show the implant in good position Assessment Right total knee replacement January 20, 2023 Previous Tests Imaging: X-Ray: An X-ray was performed. Therapy - Intervention and counseling on cessation of tobacco use. Counseling/Education - Lose weight - Health seminar on smoking cessation Plan Patient was seen by myself and Dr. Duval. Jitendra Osborn PA-C Patient will follow- up 4 weeks continue with outpatient PT Notes This dictation was done with voice recognition software and may contain errors and omissions. Practice Management Use of tobacco assessment performed. Care Team - KIM POZO MD - [facility] [place] [facility] [place] [facility] * Progress note Date Encounter Last Documented by 12/31/2022 Pre Admission Testing Last docum ented on 01/01/2023; 7:18 PM, Ann ADEN; [facility] Active Problems & Conditions - Joint Pain in the Right Knee - Joint Pain, Localized in the Left Shoulder - Lower Back Pain - Neck Pain Chief Complaint The Chief Complaint is: RT Knee pain. History of Present Illness Caro Funk is a 57 year old female. - Allergy list reviewed - Problem list reviewed - Medication list reviewed This patient is a pleasant 57 yo WF who presents with right knee pain. The pain has been going on for 3 years but has gotten progressively worse. She describes it as a sharp pain. It is now to the point that it is affecting her ADLs. She has tried NSAIDs and injections without relief of her pain. She has not fallen. She has used a as an assistive device. She was seen at Dr Duval's office and evaluated and it was determined that she has severe DJD affecting the right knee. Pt was offered a Right Total Knee Arthroplasty and agreed to the procedure. Pt denies a h/o DVT/PE. No trouble with anesthesia in the past. Pt has a h/o MENA and wears CPAP. Current Medication - Advil 200 MG Oral Capsule take as directed 0 days, 0 refills - [place] Thyroid 60 MG Oral Tablet 90 days, 0 refills - clonazePAM 1 MG Oral Tablet 30 days, 0 refills - Gabapentin 300 MG Oral Capsule take as directed 0 days, 0 refills - Losartan Potassium 50 MG Oral Tablet take as directed 30 days, 0 refills - Neurontin 300 MG Oral Capsule 1 every bedtime, 30 days, 0 refills - traMADol HCl 50 MG Oral Tablet 1 tab every 6 hrs prn pain, 15 days, 1 refills - traZODone HCl 50 MG Oral Tablet 0 days, 0 refills Allergies - Penicillins Family History Pt mother is alive with HTN and Anemia. Pt father is alive with CHF. Review Of Systems Constitutional: Neg for fevers or chills. Eyes: Neg for blurry vision or change in vision. ENT: Neg for sore throat, ear pain, or dizziness. Cardiac: Neg for chest pain or dyspnea on exertion. Respiratory: Neg for shortness of breath. Gastrointestinal: Neg for nausea, vomiting, diarrhea, or constipation. Musculoskeletal: Pos for right knee pain. Neurologic: Neg for headaches or seizures. Psychiatric: Neg for anxiety and depression. Integumentary: Neg for rash. Physical Findings - Vitals taken 12/31/2022 10:17 am baf BP-Sitting 102/74 mmHg Pulse Rate-Sitting 89 bpm Height 70 in Weight 245 lbs 9.6 oz Body Mass Index 35.2 kg/m2 Body Surface Area 2.3 m2 Oxygen Saturation .97 % Constitutional: This is a pleasant 57 yo WF in no acute distress. HEENT: Normocephalic, atraumatic. PEERLA. Extraocular muscles intact. Conjunctiva pink without exudate. Oropharynx pink and moist. Neck supple. No JVD. Cardiac: SI, S2. RRR. No M/R/G. Respiratory: Lungs CTA bilaterally. No wheezes, rales, or rhonchi. Abdomen: Soft, nontender, nondistended. Active bowel sounds. No visible masses. Musculoskeletal: Bilateral LE without clubbing, cyanosis or edema. Integumentary: Skin is pink, warm and dry. No rashes. Neurologic: CN II-XII grossly intact. Psychiatric: Judgment and affect appropriate. Tests WBC- 12.1 Hbg- 15.9 Hct- 46.6 Plts- 253 Glucose- 93 Na- 141 K- 4.2 BUN- 15 Cr- 0.56 GFR- 108 Albumin- 4.8 Prealbumin- 24 A1C- 6.2 PT- 9.9 INR- 1.0 PTT- 31 Fructosamine- 230 MRSA Nasal Swab- NEG EKG- NSR, 78 User Defined 5 1. Preoperative Exam- Pt underwent preoperative laboratory workup and diagnostic studies. 2. HTN- Continue Losartan. 3. Hypothyroidism- Continue [place] Thyroid. 4. MENA- Continue CPAP. 5. Right Knee Pain secondary to DJD- Proceed with surgery as scheduled with Dr Duval on 01/20/2023. * Progress note Date Encounter Last Documented by 12/12/2022 Follow Up Last documented on 12/16/2022; 8:55 AM, Celio Duval MD; [facility], [facility] Active Problems & Conditions - Joint Pain in the Right Knee - Joint Pain, Localized in the Left Shoulder - Lower Back Pain - Neck Pain Chief Complaint The Chief Complaint is: RT Knee pain. Referred Here Referred by self. History of Present Illness Caro Funk is a 57 year old female. - Allergy list reviewed - Problem list reviewed - Medication list reviewed Patient presents with continued right knee pain from osteoarthritis she is failed conservative treatment with injections exercise program and weight loss and activity modification as well as nonsteroidal anti-inflammatories still with pain with any weightbearing activities difficulty standing walking climbing stairs get up from seated position ADLs are affected and occasionally sleep as well she had to be on medications to help her sleep through the night because of knee pain waking her more than occasionally Current Medication - [place] Thyroid 60 MG Oral Tablet 90 days, 0 refills - clonazePAM 1 MG Oral Tablet 30 days, 0 refills - Losartan Potassium 50 MG Oral Tablet take as directed 30 days, 0 refills Past Medical/Surgical History Reported: Immunization History: No recent immunization for flu and not for pneumococcal pneumonia. Diagnoses: Thyroid Disease Procedural: - History of Gallbladder - Previous Fractures Surgical: - Hysterectomy Social History Yes, current smoker. Yes, current smoker. Current diet: No recent change in diet. No recent change in diet. Caffeine use: Caffeine use. Tobacco use: Smoker. Is a smoker. Smoking status: Current everyday smoker. Alcohol: Alcohol use. Drug Use: Not using drugs. Habits: Exercising regularly. Allergies - Penicillins Family History No significant family history Osteoporosis Review Of Systems Systemic: Not feeling tired, no recent weight loss, and no recent weight gain. Head: No headache and no sinus pain. Eyes: No vision problems, no Cataracts, no Glasses/Contacts, and no Glaucoma. Otolaryngeal: No hearing loss and no tinnitus. Cardiovascular: No chest pain or discomfort, no palpitations, no Hypertension, and no High Cholesterol. Pulmonary: No daytime asthma symptoms and no chronic cough. No wheezing. Gastrointestinal: No heartburn and no abdominal pain. No Indigestion, no Acid Reflux, no Peptic Ulcer, no GI Stomach Bleed, and no Ulcers. Endocrine: No hot flashes, no muscle weakness, and no Diabetes. Hypothyroid. No Hyperthyroid. Hematologic: No easy bleeding, no tendency for easy bruising, and no Anemia. Musculoskeletal: No Arthritis. Lower back pain. No soft tissue swelling. Pain localized to one or more joints. Neurological: No dizziness, no convulsions, and no numbness. Psychological: Anxiety. No emotional lability, no depression, and no insomnia. Not crying for no reason. Skin: No dry skin. No Ulcers, no Scars, and no rash. Allergic and Immunologic: Complaint of seasonal allergic reaction. Reviewed 11/27/2022 Physical Findings - Vitals taken 12/12/2022 03:31 pm ba Height 70 in 48 - 78 Weight 240 lbs 98 - 183 Body Mass Index 34.4 kg/m2 Body Surface Area 2.3 m2 Standard Measurements: - Patient was overweight. Right knee varus deformity tenderness medial as well as patellofemoral trace effusion also lateral tenderness to palpation antalgic gait range of motion is 5-1 20 with normal stability varus valgus and posterior drawer test testing is normal for stability Tests CT scan shows degenerative changes in all 3 compartments with osteophytes and narrowing of the cartilage in all 3 compartments with effusion and advanced degenerative change Assessment Osteoarthritis right knee with failed conservative treatment Previous Tests Imaging: X-Ray: An X-ray was performed. Therapy - Intervention and counseling on cessation of tobacco use. Counseling/Education - Lose weight - Health seminar on smoking cessation Plan StartCited - Other Neurontin 300 MG capsule 1 every bedtime, 30 days, 0 refills traMADol HCl 50 MG tablet 1 tab every 6 hrs prn pain, 15 days, 1 refills EndCited Patient is placed on tramadol and Neurontin at nighttime to help with sleep for knee pain secondary osteoarthritis having failed conservative treatment she is a good candidate for total knee replacement we discussed the details of the operation and the risks of benefits recovery time and she would like to proceed with scheduling accordingly we will go and set this up per her request CT scan is ordered for preoperative planning for patient specific right knee replacement Notes This dictation was done with voice recognition software and may contain errors and omissions. Practice Management Use of tobacco assessment performed. Care Team - KIM POZO MD - [facility] [place] [facility] [place] [facility] * Progress note Date Encounter Last Documented by 11/27/2022 Follow Up Last documented on 11/28/2022; 11:25 AM, Jitendra Cadet PA-C; [facility] Active Problems & Conditions - Joint Pain in the Right Knee - Joint Pain, Localized in the Left Shoulder - Lower Back Pain - Neck Pain Chief Complaint The Chief Complaint is: RT Knee pain. Referred Here Referred by self. History of Present Illness Caro Funk is a 57 year old female. - Allergy list reviewed - Problem list reviewed - Medication list reviewed 57 year old female in today for a follow up on a right knee scope with PMM. Patient states that she is having increased pain in the right knee today. She states that the increased pain started 2 weeks ago. She states that she had post operative pain a month ago but did much better after 2 weeks being post op. She states that she has not re injured the knee post operatively. She is having increased sensitivity to the incisions. She states that she is having some trouble sleeping due to the pain and discomfort in the knee. She states that the pain in the knee has began to cause her to wake up at night. Patient states that she is back at her original pain level before the procedure. Patient was told before the procedure that removing the meniscus can lead to a collapse in the joint space. Review of systems: All systems within normal limits with exception of right knee pain The patient's medications, medication allergies, Past Medical and Surgical History, pertinent Family History, Social History and ten point Review of Systems was reviewed by me with the patient per the registration sheet dated today. It was then signed today and scanned into the electronic record. Physical Exam: CONSTITUTIONAL: Well developed, well groomed, well nourished patient in no acute distress who appears stated age, height and weight. PSYCHIATRIC: The patient is alert and oriented to person, place, date and situation. Mood and affect are normal for current situation. NEUROLOGICAL: Sensation normal bilateral upper and lower extremities. LYMPHATIC: No pitting edema noted in the lower extremities. SKIN: No lesions noted on upper or lower extremities. Skin is dry, warm and with normal turgor. VASCULAR: No swelling in upper or lower extremities other than described below in extremity exam. Dorsalis Pedis Pulses normal in lower extremities. GAIT AND STATION: Normal gait without assistive devices. Station normal. Musculoskeletal: 0-115 DEGREES ROM Assessment: Right knee scope with PMM Imagin VIEWS: RIGHT KNEE X ray shows Advanced degenerative changes to the medial and patellofemoral compartment RIGHT KNEE STEROID INJECTION: The risks of the procedure were explained and verbally knowledge by the patient. Verbal consent was obtained. The knee was prepped with Betadine and/or alcohol. The knee was then put in a flexed position in the intercondylar notch was palpated. With ethyl chloride spray used as topical anesthesia at the site of injection, the needle was gently introduced toward interchondral notch to get entering into the synovial cavity. Upon entering into the synovial cavity, 1 cc of Celestone and 4 cc of lidocaine was injected. The needle was carefully withdrawn and a Band-Aid was applied. The knee was then placed through a range of motion. FAILED TREATMENT: Patient has failed all conservative measures including the following: Ice, anti inflammatory medication, steroid injections, MEDINA injections and physical therapy. Plan: I discussed the imaging with the patient. We talked about the collapsed joint space of the medial compartment and she is understanding. We will move forward with a steroid injection in the right knee today. We will also move forward with a CT conformis to prepare for a total knee replacement. We will see her back once the CT scan is completed with Dr. Duval. Current Medication - [place] Thyroid 60 MG Oral Tablet 90 days, 0 refills - clonazePAM 1 MG Oral Tablet 30 days, 0 refills - Losartan Potassium 50 MG Oral Tablet take as directed 30 days, 0 refills - Meloxicam 15 MG Oral Tablet 1 every bedtime, 10 days, 0 refills Past Medical/Surgical History Reported: Immunization History: No recent immunization for flu and not for pneumococcal pneumonia. Diagnoses: Thyroid Disease Procedural: - History of Gallbladder - Previous Fractures Surgical: - Hysterectomy Social History Yes, current smoker. Current diet: No recent change in diet. Caffeine use: Caffeine use. Tobacco use: Tobacco use. Alcohol: Alcohol use. Drug Use: Not using drugs. Habits: Exercising regularly. Allergies - Penicillins Family History No significant family history Osteoporosis Review Of Systems Systemic: Not feeling tired, no recent weight loss, and no recent weight gain. Head: No headache and no sinus pain. Eyes: No vision problems, no Cataracts, no Glasses/Contacts, and no Glaucoma. Otolaryngeal: No hearing loss and no tinnitus. Cardiovascular: No chest pain or discomfort, no palpitations, no Hypertension, and no High Cholesterol. Pulmonary: No daytime asthma symptoms and no chronic cough. No wheezing. Gastrointestinal: No heartburn and no abdominal pain. No Indigestion, no Acid Reflux, no Peptic Ulcer, no GI Stomach Bleed, and no Ulcers. Endocrine: No hot flashes, no muscle weakness, and no Diabetes. Hypothyroid. No Hyperthyroid. Hematologic: No easy bleeding, no tendency for easy bruising, and no Anemia. Musculoskeletal: No Arthritis. Lower back pain. No soft tissue swelling. Pain localized to one or more joints. Neurological: No dizziness, no convulsions, and no numbness. Psychological: Anxiety. No emotional lability, no depression, and no insomnia. Not crying for no reason. Skin: No dry skin. No Ulcers, no Scars, and no rash. Allergic and Immunologic: Complaint of seasonal allergic reaction. Reviewed 11/27/2022 Physical Findings - Vitals taken 11/27/2022 02:06 pm ba Height 70 in Weight 240 lbs Body Mass Index 34.4 kg/m2 Body Surface Area 2.3 m2 Standard Measurements: - Patient was overweight. Previous Tests Imaging: X-Ray: An X-ray was performed. Therapy - Intervention and counseling on cessation of tobacco use. Counseling/Education - Lose weight - Health seminar on smoking cessation Plan StartCited - Other Radiology/CT Scan: Knee Instructions: RIGHT oxyCODONE HCl 5 MG tablet 1 every bedtime, 10 days, 0 refills EndCited Notes This dictation was done with voice recognition software and may contain errors and omissions. transcribed by Carlene Gutierrez Practice Management Use of tobacco assessment performed. Care Team - KIM POZO MD - [employer] [place] [facility] [place] [facility] * Progress note Date Encounter Last Documented by 10/11/2022 Post Op Last documented on 10/11/2022; 11:26 AM, Jael Kahn; [facility], [facility] Active Problems & Conditions - Joint Pain in the Right Knee - Joint Pain, Localized in the Left Shoulder - Lower Back Pain - Neck Pain Chief Complaint The Chief Complaint is: RT Knee pain. Referred Here Referred by self. History of Present Illness Caro Funk is a 57 year old female. - Allergy list reviewed - Problem list reviewed - Medication list reviewed FOLLOWUP EVALUATION SUBJECTIVE: The patient was seen today in followup after undergoing a right knee arthroscopy with partial medial and lateral meniscectomy, patellofemoral chondroplasty. She states her range of motion is improving and her strength is improved. She does take oral anti-inflammatories as needed for pain. She is working on range of motion exercises on her own. PHYSICAL EXAMINATION: The patient is alert and oriented x3. Normal gait and station. No audible wheeze. No shortness of air. No rash, erythema, or ecchymosis. Sutures removed without difficulty. Wound is healing as expected. The patient has full active range of motion of the right knee from 0 degrees to 125 degrees. She is neurovascularly intact. ASSESSMENT: S/P right knee arthroscopy with partial medial and lateral meniscectomy, patella femoral chondroplasty PLAN: The patient to continue with range of motion and physical therapy exercises. She will follow up with us on an as-needed basis. Current Medication - [place] Thyroid 60 MG Oral Tablet 90 days, 0 refills - Aspirin Adult Low Strength 81 MG Oral Tablet Delayed Release twice a day, 45 days, 0 refills - clonazePAM 1 MG Oral Tablet 30 days, 0 refills - Losartan Potassium 50 MG Oral Tablet take as directed 30 days, 0 refills Past Medical/Surgical History Reported: [...] Family History No significant family history Osteoporosis Review Of Systems Systemic: Not feeling tired, no recent weight loss, and no recent weight gain. Head: No headache and no sinus pain. Eyes: No vision problems, no Cataracts, no Glasses/Contacts, and no Glaucoma. Otolaryngeal: No hearing loss and no tinnitus. Cardiovascular: No chest pain or discomfort, no palpitations, no Hypertension, and no High Cholesterol. Pulmonary: No daytime asthma symptoms and no chronic cough. No wheezing. Gastrointestinal: No heartburn and no abdominal pain. No Indigestion, no Acid Reflux, no Peptic Ulcer, no GI Stomach Bleed, and no Ulcers. Endocrine: No hot flashes, no muscle weakness, and no Diabetes. Hypothyroid. No Hyperthyroid. Hematologic: No easy bleeding, no tendency for easy bruising, and no Anemia. Musculoskeletal: No Arthritis. Lower back pain. No soft tissue swelling. Pain localized to one or more joints. Neurological: No dizziness, no convulsions, and no numbness. Psychological: Anxiety. No emotional lability, no depression, and no insomnia. Not crying for no reason. Skin: No dry skin. No Ulcers, no Scars, and no rash. Allergic and Immunologic: Complaint of seasonal allergic reaction. Reviewed 10/11/22 Physical Findings - Vitals taken 10/11/2022 11:04 am ba BP-Sitting 128/77 mmHg Pulse Rate-Sitting 103 bpm Height 70 in Weight 240 lbs Body Mass Index 34.4 kg/m2 Body Surface Area 2.3 m2 Standard Measurements: - Patient was overweight. Previous Tests Imaging: X-Ray: An X-ray was performed. Counseling/Education - Lose weight - Health seminar on smoking cessation Notes This dictation was done with voice recognition software and may contain errors and omissions. Practice Management Use of tobacco assessment performed; No influenza immunization patient refused. Care Team - KIM POZO MD - [employer] [employer] [place] [facility] [place] [facility] * Progress note Date Encounter Last Documented by 09/11/2022 Follow Up Last documented on 10/08/2022; 4:44 PM, Jitendra Cadet PA-C; [facility], [facility] Active Problems & Conditions - Joint Pain in the Right Knee - Joint Pain, Localized in the Left Shoulder - Lower Back Pain - Neck Pain Chief Complaint The Chief Complaint is: RT Knee pain. Referred Here Referred by self. History of Present Illness Caro Funk is a 56 year old female. - Allergy list reviewed - Problem list reviewed - Medication list reviewed 56 year old female in today for right knee pain. Patient complete the MEDINA injections in May. She states that she is not seeing any difference and is having increased pain in the knee. She had a MRI in the past that showed a degenerative tear in the right knee. Patient states that the pain is on the medial compartment. She states that she does have some popping and giving out of the knee. She has been using ice for the knee to help with any inflammation. She is having water server pain in the knee and is effecting her day to day activity. Review of systems: All systems within normal limits with exception of right knee pain Physical Exam: CONSTITUTIONAL: Well developed, well groomed, well nourished patient in no acute distress who appears stated age, height and weight. PSYCHIATRIC: The patient is alert and oriented to person, place, date and situation. Mood and affect are normal for current situation. NEUROLOGICAL: Sensation normal bilateral upper and lower extremities. LYMPHATIC: No pitting edema noted in the lower extremities. SKIN: No lesions noted on upper or lower extremities. Skin is dry, warm and with normal turgor. VASCULAR: No swelling in upper or lower extremities other than described below in extremity exam. Dorsalis Pedis Pulses normal in lower extremities. GAIT AND STATION: Normal gait without assistive devices. Station normal. Musculoskeletal: The patient is alert and oriented x3 with normal gait and station. She has an active range of motion of 0 degrees to 110 degrees. There is tenderness to palpation along the medial joint line of the right knee with palpable crepitus of the patellofemoral compartment. Assessment: Right knee pain Right knee OA Right knee degenerative tear FAILED TREATMENT: Ice, ibuprofen, Steroid and MEDINA injections SURGICAL RISK & BENEFITS: Includes but is not limited to bleeding, infection, injury to surrounding structures such as blood vessels tendons and nerves. We discussed the possibility of surgical procedure failure, persistent pain, loss of motion, persistent stiffness, persistent weakness, and the need for a revision surgery. In addition, we discussed the risk of heart attack, stroke, or .patient understands these as well as alternative forms of treatment and does wish to proceed. Plan: I talked to the patient regarding her treatment options. I talked to her about a possible knee scope as well as a partial knee replacement. She is understanding of both of her options today. I will talk with Dr. Duval to evaluate the patient and determine which method of treatment will be most beneficial. We will have our surgery schedular to go over surgical dates if this is what Dr. Duval decides to do. Current Medication - amLODIPine Besylate 5 MG Oral Tablet 30 days, 0 refills - [place] Thyroid 60 MG Oral Tablet 90 days, 0 refills - clonazePAM 1 MG Oral Tablet 30 days, 0 refills - Losartan Potassium 50 MG Oral Tablet take as directed 30 days, 0 refills Past Medical/Surgical History Reported: Immunization History: No recent immunization for flu and not for pneumococcal pneumonia. Diagnoses: Thyroid Disease Procedural: - History of Gallbladder - Previous Fractures Surgical: - Hysterectomy Social History Yes, current smoker. Yes, current smoker. Current diet: No recent change in diet. No recent change in diet. Caffeine use: Caffeine use. Tobacco use: Smoker. Is a smoker. Smoking status: Current everyday smoker. Alcohol: Alcohol use. Drug Use: Not using drugs. Habits: Exercising regularly. Allergies - Penicillins Family History No significant family history Osteoporosis Review Of Systems Systemic: Not feeling tired, no recent weight loss, and no recent weight gain. Head: No headache and no sinus pain. Eyes: No vision problems, no Cataracts, no Glasses/Contacts, and no Glaucoma. Otolaryngeal: No hearing loss and no tinnitus. Cardiovascular: No chest pain or discomfort, no palpitations, no Hypertension, and no High Cholesterol. Pulmonary: No daytime asthma symptoms and no chronic cough. No wheezing. Gastrointestinal: No heartburn and no abdominal pain. No Indigestion, no Acid Reflux, no Peptic Ulcer, no GI Stomach Bleed, and no Ulcers. Endocrine: No hot flashes, no muscle weakness, and no Diabetes. Hypothyroid. No Hyperthyroid. Hematologic: No easy bleeding, no tendency for easy bruising, and no Anemia. Musculoskeletal: No Arthritis. Lower back pain. No soft tissue swelling. Pain localized to one or more joints. Neurological: No dizziness, no convulsions, and no numbness. Psychological: Anxiety. No emotional lability, no depression, and no insomnia. Not crying for no reason. Skin: No dry skin. No Ulcers, no Scars, and no rash. Allergic and Immunologic: Complaint of seasonal allergic reaction. Reviewed 09/11/22 Physical Findings - Vitals taken 09/11/2022 01:49 pm ba BP-Sitting 118/71 mmHg Pulse Rate-Sitting 135 bpm Height 70 in Weight 240 lbs Body Mass Index 34.4 kg/m2 Body Surface Area 2.3 m2 Standard Measurements: - Patient was overweight. Previous Tests Imaging: X-Ray: An X-ray was performed. Therapy - Intervention and counseling on cessation of tobacco use. Counseling/Education - Lose weight - Health seminar on smoking cessation Notes This dictation was done with voice recognition software and may contain errors and omissions. transcribed by Alysa Gutierrez Practice Management Use of tobacco assessment performed; No influenza immunization patient refused. Care Team - KIM POZO MD - [employer] [place] [facility] [place] [facility]
--- OUTSIDE RECORDS SUMMARY | 2023-07-29 14:54 | XMS_ITS ---
Care Plan - [facility], [facility] Created on: July 29, 2023 Melissa FUNK : 1965 Sex: Female Author Name Unknown Address [address] [place] [address] Phone Organization [facility] , [facility] Address [address] [place] [address] Phone Care Team Providers Care Tool Machine Set Up Operator Name Role Phone KIM POZO MD Primary Care Provider [phone] Julio CHERRY, Gideon Concepcion Unavailable [phone]
--- OUTSIDE RECORDS SUMMARY | 2023-07-29 14:54 | XMS_ITS | Clinical Summary ---
Author Name Unknown Address [address] [place] [address] Phone Organization [facility] , [facility] Address [address] [place] [address] Phone Care Team Providers Care Broadcast Transmitter Operator Name Role Phone KIM POZO MD Primary Care Provider [phone] Julio CHERRY, Gideon A Unavailable [phone] Reason for Visit and Chief Complaint MRI Problems Includes: Problems addressed during this encounter and other active Problems All Visits Onset Date Resolved Date Provider Condition S tatus Joint Pain in the Left Knee 05/20/2023 Celio Duval MD Active Plan of Treatment Future Appointments Date Time Location Provi arian Follow Up 08/05/2023 8:30AM [facility] ALEKNAGIKJONA Duval MD Assessments Includes: Assessments from this encounter No Assessments Recorded Medical Equipment - Implanted Devices Includes: Current Devices No Medical Equipment Recorded Medications Includes: Medications discussed during this encounter and other current Medications Current Medications (continue as prescribed) Meloxicam [...] 1 MG Oral Tablet 06/10/2022 Provider: Diagnosis: [place] Thyroid 60 MG Oral Tablet 03/22/2021 Provider : KELLIE LACEY MD Diagnosis: Medications Administered Includes: Administered Medications from this encounter No Administered Medications Recorded Results Includes: Results discussed during this encounter No Results Recorded For Specified Dates History of Present Illness Includes: History of Present Illness from this encounter No History of Present Illness Recorded Social History No Social History Recorded - Smoking Status Unknown Procedures and Surgical History Includes: Procedures from this encounter Procedures Code Diagnosis Performing Provider Service Location Service Date MRI LUMBAR SPINE W/O DYE 31061 Low back pain, unspecified Gideon Kim MD [facility] 03/14/2023 Medical History Includes: Medical History addressed during this encounter No Medical History Recorded Family History Includes: Family History addressed during this encounter No Family History Recorded Review of Systems Includes: Review of Systems from this encounter No Review of Systems Recorded Mental Status Includes: Mental Status from this encounter No Mental Status Recorded Functional Status Includes: Functional Status from this encounter No Functional Status Recorded Physical Exam Includes: Physical Exam from this encounter No Physical Exam Recorded Allergies Includes: Active Allergies Substance Type Reaction Onset Date Resolved Date Statu s Penicillins Allergy 05/30/2020 Active Encounters Encounter Provider Location Date Check-In Time Check-Out Time Diagnosis MRI [facility] 03/14/2023 7:53AM 8:56AM Insurance Includes: Active Insurance Policies Plan Name Member ID Group # Subscriber Relationship Effect daruis Dates 1 - [facility] [id number] FUNK, ANDRÉS 10/13/2020 - Unknown Clinical Notes Includes: Clinical Notes from this encounter No Clinical Notes Recorded
--- OUTSIDE RECORDS SUMMARY | 2023-07-29 14:54 | XMS_ITS | Clinical Summary ---
Author Name Unknown Address [address] [place] [address] Phone Organization [facility] , [facility] Address [address] [place] [address] Phone Care Team Providers Care Weaving Inspector Name Role Phone KIM POZO MD Primary Care Provider [phone] Julio CHERRY, Gideon Concepcion Unavailable [phone] Reason for Visit and Chief Complaint The Chief Complaint is: RT Knee pain Problems Includes: Problems addressed during this encounter and other active Problems Current Visit Onset Date Resolved Date Provider Conditio n Status Lower Back Pain 04/30/2022 Jitendra Osborn PA-C A ctive Past Visits Onset Date Resolved Date Provider Condition Status Joint Pain in the Left Knee 05/20/2023 eClio Duval MD Active Plan of Treatment Patient was seen by myself Jitendra Osborn [...] call and let us look at this - Last Documented On 03/18/2023 1:55PM ; [facility], [facility] Future Appointments Date Time Location Provi arian Follow Up 08/05/2023 8:30AM [facility] [place] IQUAKalani Duval MD Instructions to patient Intervention and counseling on cessation of tobacco use Last Documented On 3 1:31PM ; [facility] Assessments Includes: Assessments from this encounter Findings Right total knee replacement January 20, 2023 - Last Documented On 03/18/2023 1:55PM ; [facility] Instructions Includes: Instructions from this encounter Instructions to patient Intervention and counseling on cessation of tobacco use Last Documented On 1:31PM ; [facility] Medical Equipment - Implanted Devices [...] 1 MG Oral Tablet 06/10/2022 Provider: Diagnosis: [place] Thyroid 60 MG Oral Tablet 03/22/2021 Provider [...] MG Oral Tablet 09/26/2022 - 10/10/20 Provider: eClio Duval MD Diagnosis: 1-2 p o q [...] no erythema. It is now closed though. Social History Description Last Updated Yes, current smoker. 03/18/2023 Procedures and Surgical History Includes: Procedures from this encounter Procedures Code Diagnosis Performing Provider Service L ocation Service Date intervention and counseling on cessation of tobacco use 4000F Medical History Includes: Medical History addressed during this encounter Description Last Updated History of Gallbladder 05/30/2020 Family History Includes: Family History addressed during this encounter Description Last Updated Family history of osteoporosis 0 Review of Systems Includes: Review of Systems from this encounter Systemic: Not feeling tired, no recent weight [...] Complaint of seasonal allergic reaction. Reviewed 03/18/2023 Mental Status Includes: Mental Status from this encounter Description Anxiety Functional Status Includes: Functional Status from this encounter No Functional Status Recorded Physical Exam Includes: Physical Exam from this encounter Allergies Includes: Active Allergies Substance Type Reaction Onset Date Resolved Date Statu s Penicillins Allergy 05/30/2020 Active Encounters Encounter Provider Location Date Check-In Time Check- Out Time Diagnosis Follow [facility] 8:19AM Insurance Includes: Active Insurance Policies Plan Name Member ID Group # Subscriber Relationship Effect darius Dates 1 - [facility] [id number] ANDRÉS FUNK 10/13/2020 - Unknown Clinical Notes Includes: Clinical Notes from this encounter * Progress note Date Encounter Last Documented by 03/18/2023 Follow Up Last documented on 03/18/2023; 1:55 PM, Jitendra Osborn PA-C; [facility], [facility] Active Problems & Conditions - Joint [...] total knee January 20, [address] Duvla she noticed yesterday she had a little [...] as directed 0 days, 0 refills - [place] Thyroid 60 MG Oral Tablet 90 days, [...] Care Team - KIM POZO MD - SENIOR QUALITY TECHNICIAN
--- OUTSIDE RECORDS SUMMARY | 2023-07-29 14:54 | XMS_ITS | Clinical Summary ---
Author Name Unknown Address [address] [place] [address] Phone Organization [facility] , [facility] Address [address] [place] [address] Phone Care Team Providers Care [place] Erector Name Role Phone KIM POZO MD Primary Care Provider [phone] Julio CHERRY, Gideon Concepcion Unavailable [phone] Reason for Visit and Chief Complaint [Patient Encounter] Problems Includes: Problems addressed during this encounter and other active Problems All Visits Onset Date Resolved Date Provider Condition S tatus Joint Pain in the Left Knee 05/20/2023 Celio Duval MD Active Plan of Treatment Pending Tests Order Diagnosis Results Due Ordering P rovider Radiology - MRI MRI Lumbar Spine Other intervert ebral disc degeneration, lumbar region 03/18/23 Celio Duval MD Future Appointments Date Time Location Provi arian Follow Up 08/05/2023 8:30AM [facility] Celio Duval MD Assessments Includes: Assessments from this encounter No Assessments Recorded Medical Equipment - Implanted Devices Includes: Current Devices No Medical Equipment Recorded Medications Includes: Medications discussed during this encounter and other current Medications New / Renewed during this visit Celio Duval MD on 05/07/2023 Meloxicam 15 MG Oral Tablet Provider: Celio Duval MD 30 day supply: 30 tablet, 2 refills Diagnosis: 1 every bedtime Pharmacy: [facility] [id number] [address] , [place], [id number] - Current Medications (continue as prescribed) Advil 200 MG Oral Capsule 12/31/2022 Provider: Diagnosis: traZODone HCl 50 MG Oral Tablet 12/31/2022 Provider: Diagnosis: Gabapentin 300 MG Oral Capsule 12/23/2022 Provider: Diagnosis: Losartan Potassium 50 MG Oral Tablet 08/17/2022 Prov ider: Diagnosis: clonazePAM 1 MG Oral Tablet 06/10/2022 Provider: Diagnosis: [place] Thyroid 60 MG Oral Tablet 03/22/2021 Provider [...] Social History Recorded - Smoking Status Unknown Medical History Includes: Medical History addressed during [...] Location Date Check-In Time Check-Out Time Diagnosis [Patient Encounter] Celio Duval MD 05/07/2023 11:10AM 11:59PM Insurance Includes: Active Insurance Policies Plan Name Member ID Group # Subscriber Relationship Effect darius Dates 1 - [facility] [id number] BLESSING, ANDRÉS 10/13/2020 - Unknown Clinical Notes Includes: Clinical Notes from this encounter No Clinical Notes Recorded
--- OUTSIDE RECORDS SUMMARY | 2023-07-29 14:54 | XMS_ITS | Clinical Summary ---
Author Name Unknown Address [address] [place] [address] Phone Organization [facility] , [facility] Address [address] [address] Phone Care Team Providers Care Retail Coverage Merchandiser Name Role Phone KIM POZO MD Primary Care Provider [phone] Julio CHERRY, Gideon Concepcion Unavailable [phone] Reason for Visit and Chief Complaint The Chief Complaint is: RT Knee pain Problems Includes: Problems addressed during this encounter and other active Problems Current Visit Onset Date Resolved Date Provider Conditio n Status Lower Back Pain 04/30/2022 Jitendra Concepcion ctive Past Visits Onset Date Resolved Date Provider Condition Status Joint Pain in the Left Knee 05/20/2023 Celio Duval MD Active Plan of Treatment Patient will continue current exercise program for [...] on the right which is doing well - Last Documented On 04/01/2023 1:06PM ; [facility] Pending Tests Order Diagnosis Results Due Ordering P gilberto Radiology - MRI MRI Lumbar Spine Other intervert ebral disc degeneration, lumbar region 03/18/23 Celio Duval MD Referrals To Diagnosis Consult with Mineral Economist Low back pain, unspecified Future Appointments Date Time Location Provi arian Follow Up 08/05/2023 8:30AM [facility] Instructions to patient Intervention and counseling on cessation of tobacco use Last Documented On 3 10:51AM ; [facility], [facility] Assessments Includes: Assessments from this encounter Findings Right total knee replacement January 20, 2023 - Last Documented On 04/01/2023 1:06PM ; [facility], [facility] Instructions Includes: Instructions from this encounter Instructions to patient Intervention and counseling on cessation of tobacco use Last Documented On 3 10:51AM ; [facility] Medical Equipment - Implanted Devices Includes: Current Devices No Medical Equipment Recorded Medications Includes: Medications discussed during this encounter and other current Medications New / Renewed during this visit Celio Duval MD on 04/01/2023 Meloxicam 15 MG Oral Tablet Provider: Celio Duval MD 30 day supply: 30 tablet, 0 refills Diagnosis: 1 every bedtime Pharmacy: [id number] - [address], [address] - Current Medications (continue as prescribed) Meloxicam [...] 1 MG Oral Tablet 06/10/2022 Provider: Diagnosis: [place] Thyroid 60 MG Oral Tablet 03/22/2021 Provider : KELLIE LACEY MD Diagnosis: Past Medications on file Diclofenac Sodium 75 MG Oral Tablet, enteric coated 05/20/2023 - 07/19/2023 Provider: Celio Duval MD Diagnosis: twice a day take 1 tablet twice daily Neurontin 300 MG Oral Capsule 02/26/2023 - [...] from this encounter No Administered Medications Recorded Vital Signs Includes: Vital Signs from this encounter Vital Name 04/01/2023 11:04A Height (in) 70 Weight (lb) 245 Body Mass Index 35.2 Body Surface Area 2.3 Note: mg Last Documented On: 04/01/2023 11:04AM ; [facility], [facility] Results Includes: Results discussed during this encounter No Results Recorded For Specified Dates History of Present Illness Includes: History of Present Illness from this encounter EDEN FUNK is a 57 year old female. - Allergy list reviewed - Problem list reviewed - Medication list reviewed Follow-up for foot pain bilateral with radicular symptoms and lumbar pain status post MRI lumbar spine Social History Description Last Updated Yes, current [...] Complaint of seasonal allergic reaction. Reviewed 04/01/2023 Mental Status Includes: Mental Status from this encounter Description Anxiety Functional Status Includes: Functional Status from this encounter No Functional Status Recorded Physical Exam Includes: Physical Exam from this encounter Allergies Includes: Active Allergies Substance Type Reaction Onset Date Resolved Date Statu s Penicillins Allergy 05/30/2020 Active Encounters Encounter Provider Location Date Check-In Time Check- Out Time Diagnosis Follow Up Celio Duval MD [facility] 3 10:50AM 11:59AM Insurance Includes: Active Insurance Policies Plan Name Member ID Group # Subscriber Relationship Effect darius Dates 1 - [employer] [facility] [employer] [id number] BLESSING, ANDRÉS 10/13/2020 - Unknown Clinical Notes Includes: Clinical Notes from this encounter * Progress note Date Encounter Last Documented by 04/01/2023 Follow Up Last documented on 04/01/2023; 1:06 PM, Celio Duval MD; [facility], [facility] Active Problems & Conditions - Joint Pain [...] as directed 0 days, 0 refills - [place] Thyroid 60 MG Oral Tablet 90 days, [...] Plan StartCited - Low back pain, unspecified Referral/Mineral Economist: Consult with Mineral Economist EndCited StartCited - Other Meloxicam 15 MG [...] Care Team - KIM POZO MD - FILM TECHNICIAN
== END ==
PROVIDERS: Visit Provider Dermatology
DX: Z00.00 Encounter for general adult medical examination without abnormal findings (principal)